=== PATIENT | female | born 1935 ===

== ENCOUNTER 2022-08-11 08:14 | Emergency (ER) | payer SELFPAY ==
[~2022-08-11] VITALS: Ht 175.3 cm; Wt 91.0 kg
[2022-08-11 09:17] VITALS: BP 148/91
[2022-08-11] MEDS: IBUPROFEN 400MG TABLET PO ONE (09:17)
[2022-08-11] MEDS ORDERED: TOPUD MT (12:00)
[2022-08-11] MEDS ORDERED: IBUP-2028 MT (12:00)
== END 2022-08-11 13:22 | disposition home or self-care (01) ==
LOC: ER 08:14
DX: M25.512 Pain in left shoulder (principal); I10 Essential (primary) hypertension; W18.30XA Fall on same level, unspecified, initial encounter; Y93.89 Activity, other specified; Y92.89 Other specified places as the place of occurrence of the external cause; Y99.8 Other external cause status
CPT/HCPCS: 71045; 72170; 73030; 73060; 99284; A4565